=== PATIENT | female | born 1995 | race Caucasian/White ===

== ENCOUNTER 2017-11-24 18:29 | Emergency (ER) | payer SELFPAY ==
[2017-11-24 19:29] LABS: #Eosinphils 0.2 thou/uL (0.0-0.7); #Lymphocytes 1.9 thou/uL (1.20-3.40); #Monocytes 0.7 thou/uL (0.11-0.59); #Neutrophils 6.7 thou/uL (1.40-6.50); %Basophils 0.3 % (0.0-1.0); %Eosinophils 2.6 % (0.0-10.0); %Lymphocytes 19.6 % (21.0-51.0); %Monocytes 6.9 % (0.0-10.0); Mean Platelet Volume 6.6 fL (7.4-10.4); Red Blood Cell (RBC) Count 4.65 mill/uL (4.20-5.40); White Blood Cell (WBC) Count 9.5 thou/uL (4.8-10.8)
[2017-11-24 19:38] LABS: Bilirubin Negative (Negative); Blood, Urine Negative (Negative); Glucose, Urine (Dipstick) Negative (Negative); Ketone, Urine Negative (Negative); Nitrite Negative (Negative); Protein, Urine (Dipstick) Negative (Neg-Trace); Urobilinogen 0.2 mg/dL (0.2-1.0)
[2017-11-24 19:47] LABS: ALT (SGPT) 23 U/L (8-55); AST (SGOT) 16 U/L (5-34); Alkaline Phosphatase 55 U/L (40-150); Anion Gap 14 mmol/L (10-20); BUN (Urea Nitrogen) 10 mg/dL (7.0-18.7); Bilirubin, Total 0.2 mg/dL (0.2-1.2); Calc. Creatinine Clearance 0 mL/min (70-130); Calcium 9.9 mg/dL (7.8-10.44); Carbon Dioxide 19 mmol/L (22-29); Chloride 109 mmol/L (98-107); Estimated GFR-MDRD 88; Globulin 3.8 g/dL (2.4-3.5); Lipase 26 U/L (8-78)
[2017-11-24] MEDS ORDERED: Ketorolac Tromethamine 30 MG/ML VIAL ONE (20:09)
== END 2017-11-24 21:12 | disposition home or self-care (01) ==
LOC: ERS 18:29
DX: J32.9 Chronic sinusitis, unspecified (principal)
CPT/HCPCS: 36415; 80053; 81003; 83690; 84703; 85025; 96372; J1885

== ENCOUNTER 2018-12-19 15:55 | Emergency (ER) | payer SELFPAY | END 2018-12-19 16:29 | disposition home or self-care (01) | LOC: ERS 15:55 | DX: J01.90 Acute sinusitis, unspecified (principal) | CPT/HCPCS: 99283 ==

== ENCOUNTER 2019-08-01 10:43 | Emergency (ER) | payer OTHER ==
[2019-08-01] MEDS ORDERED: Ketorolac Tromethamine 30 MG/ML VIAL ONE (11:53)
--- NOTE | 2019-08-01 12:25 | CT ---
CERVICAL SPINE CT WITHOUT CONTRAST: DATE: 08/01/2019. COMPARISON: None. HISTORY: Numbness and tingling of bilateral upper extremities. TECHNIQUE: Axial CT imaging at 2 mm intervals through the cervical spine with coronal and sagittal reformatted i maging. FINDINGS: The imaged lung apices are unremarkable. The craniocervical junction appears intact. The atlantoaxial interspace and the cervicothoracic junctions demonstrate no acute findings. Cervico vertebral body height and alignment appears within normal limits. No prevertebral soft tissue swelli ng. The C1 ring, occipital condyles, dens, and C1-2 articulation appear within normal limits. Evaluation for central canal and/or neural foraminal stenosis is limited on routine CT. There is no osseous cause of significant central canal or neural foraminal stenosis within the cervical spine. N o acute fracture or evidence of dislocation is seen. IMPRESSION: No acute osseous abnormality. Evaluation for central canal and/or neural foraminal stenosis is limit ed on CT and, thus, if symptoms persist, MRI of cervical spine suggested. POS: OFF
== END 2019-08-01 16:06 | disposition home or self-care (01) ==
LOC: ERS 10:43
DX: R20.2 Paresthesia of skin (principal); J45.909 Unspecified asthma, uncomplicated; F17.210 Nicotine dependence, cigarettes, uncomplicated; F41.9 Anxiety disorder, unspecified; F31.9 Bipolar disorder, unspecified
CPT/HCPCS: 72125; 96372; J1885

== ENCOUNTER 2019-10-22 07:24 | Emergency (ER) | payer OTHER ==
--- NOTE | 2019-10-22 07:55 | RAD ---
2 view chest: [10/22/2019] Comparison:None available HISTORY: Cough FINDINGS: Heart and mediastinal contours are grossly unremarkable. No pneumothorax or pleural fluid. No focal consolidation or alveolar edema. IMPRESSION: No acute findings.
== END 2019-10-22 08:23 | disposition home or self-care (01) ==
LOC: ERS 07:24
DX: J06.9 Acute upper respiratory infection, unspecified (principal); J02.9 Acute pharyngitis, unspecified; J45.909 Unspecified asthma, uncomplicated; F41.9 Anxiety disorder, unspecified; F31.9 Bipolar disorder, unspecified; F17.210 Nicotine dependence, cigarettes, uncomplicated
CPT/HCPCS: 71046

== ENCOUNTER 2019-12-27 06:28 | Emergency (ER) | payer OTHER | END 2019-12-27 07:25 | disposition home or self-care (01) | LOC: ERS 06:28 | DX: J45.901 Unspecified asthma with (acute) exacerbation (principal); J06.9 Acute upper respiratory infection, unspecified; F41.9 Anxiety disorder, unspecified; F32.9 Major depressive disorder, single episode, unspecified; F17.210 Nicotine dependence, cigarettes, uncomplicated; Z79.51 Long term (current) use of inhaled steroids | CPT/HCPCS: 87804; 94640; 99406; J7620 ==

== ENCOUNTER 2019-12-29 06:47 | Emergency (ER) | payer OTHER ==
[2019-12-29] MEDS ORDERED: Magnesium 2 GM/50 ML BAG (IN WATER) ONE (07:18)
[2019-12-29] MEDS ORDERED: Dexamethasone 10 MG/ML VIAL ONE (07:18)
[2019-12-29 07:21] LABS: #Eosinphils 0.1 thou/uL (0.0-0.7); #Lymphocytes 2.3 thou/uL (1.20-3.40); #Monocytes 0.8 thou/uL (0.11-0.59); #Neutrophils 2.8 thou/uL (1.40-6.50); %Basophils 0.5 % (0.0-1.0); %Eosinophils 0.9 % (0.0-10.0); %Lymphocytes 38.9 % (21.0-51.0); %Monocytes 12.9 % (0.0-10.0); %Neutrophils 46.7 % (42.0-75.0); Hemoglobin 14.6 g/dL (12.0-16.0); Mean Corpuscular HGB CONC 33.9 g/dL (32.0-36.0); Mean Corpuscular Hemoglobin 30.7 pg (27.0-31.0); Mean Corpuscular Volume 90.8 fL (78.0-98.0); Mean Platelet Volume 7.1 fL (7.4-10.4); Platelet Count 324 thou/uL (130-400); RBC Distribution Width 12.6 % (11.5-14.5); Red Blood Cell (RBC) Count 4.75 mill/uL (4.20-5.40); White Blood Cell (WBC) Count 5.9 thou/uL (4.8-10.8)
[2019-12-29] MEDS ORDERED: Racepinephrine 2.25% 0.5 ML NEB ONE (07:23)
[2019-12-29] MEDS ORDERED: Sodium Chloride For Inhalation 0.9% 3 ML NEB ONE ×2 (07:26→07:29)
[2019-12-29 07:34] LABS: ALT (SGPT) 57 U/L (8-55); AST (SGOT) 39 U/L (5-34); Alkaline Phosphatase 46 U/L (40-110); Anion Gap 12 mmol/L (10-20); BUN (Urea Nitrogen) 8 mg/dL (7.0-18.7); Bilirubin, Total Less than 0.2 mg/dL (0.2-1.2); Calc. Creatinine Clearance 0 mL/min (70-130); Calcium 8.7 mg/dL (7.8-10.44); Carbon Dioxide 21 mmol/L (22-29); Chloride 110 mmol/L (98-107); Estimated GFR-MDRD Greater than 90; Globulin 3.6 g/dL (2.4-3.5); Glucose 149 mg/dL (70-105); Potassium 3.6 mmol/L (3.5-5.1); Protein, Total 7.6 g/dL (6.0-8.3); Sodium 139 mmol/L (136-145)
[2019-12-29] MEDS ORDERED: Acetaminophen 500 MG TAB ONE (07:55)
--- NOTE | 2019-12-29 08:42 | RAD ---
CHEST 1 VIEW: HISTORY: Upper respiratory infection, cough, can't catch her breath. COMPARISON: 10/22/2019. FINDINGS: Heart size is within normal limits. The lungs are clear of acute process. No confluent pneumonia, o vert edema, or pleural effusion. IMPRESSION: No significant acute intrathoracic disease. Stable from prior study. POS: OFF
== END 2019-12-29 08:25 | disposition home or self-care (01) ==
LOC: ERS 06:47
DX: J10.1 Influenza due to other identified influenza virus with other respiratory manifestations (principal); J45.909 Unspecified asthma, uncomplicated; F41.9 Anxiety disorder, unspecified; F32.9 Major depressive disorder, single episode, unspecified; F17.210 Nicotine dependence, cigarettes, uncomplicated; Z79.899 Other long term (current) drug therapy; Z79.51 Long term (current) use of inhaled steroids
CPT/HCPCS: 71045; 80053; 83605; 85025; 87040; 87804; 93005; 94640; 96365; 96375; J1100; J3475; J7620